=== PATIENT | female | born 1995 | race Hispanic/Latino ===

== ENCOUNTER 2022-08-07 02:28 | Inpatient (IN) | payer MEDICAID, OTHER ==
[2022-08-07] MEDS ORDERED: Lidocaine 1% (PF) 30 ML VIAL SC PRN (03:36)
[2022-08-07] MEDS ORDERED: Acetaminophen 500 MG TAB PO PRN (03:36)
[2022-08-07] MEDS ORDERED: Carboprost 250 MCG/ML AMP IM PRN (03:36)
[2022-08-07] MEDS ORDERED: hydrALAZINE 20 MG/ML VIAL SLOW IVP PRN ×2 (03:36→14:32)
[2022-08-07] MEDS ORDERED: Ondansetron PF 4 MG/2 ML Vial IVP PRN ×3 (03:36→14:32)
[2022-08-07] MEDS ORDERED: Diphenoxylate HCl/Atropine Tablet PO PRN (03:36)
[2022-08-07] MEDS ORDERED: Promethazine HCl 25 MG/ML VIAL IM PRN ×2 (03:36→10:37)
[2022-08-07] MEDS ORDERED: Misoprostol 200 MCG TAB PR PRN (03:36)
[2022-08-07] MEDS ORDERED: Methylergonovine 0.2 MG/ML VIAL IM PRN (03:36)
[2022-08-07] MEDS ORDERED: Docusate 100 MG CAP PO PRN (03:36)
[2022-08-07] MEDS ORDERED: Ibuprofen 800 MG TAB PO PRN (03:36)
[2022-08-07] MEDS ORDERED: NS w/ Oxytocin 30 units 500 ML IV SCH (03:45)
[2022-08-07 03:53] LABS: Fetal Membranes Rupture RUPTURE DETECTED (No Rupture)
[2022-08-07 04:47] LABS: Hemoglobin 13.2 g/dL (12.0-15.5); Mean Corpuscular HGB CONC 34.4 g/dL (32.0-36.0); Mean Corpuscular Hemoglobin 30.6 pg (27.0-33.0); Mean Corpuscular Volume 89.1 fl (81.6-98.3); Mean Platelet Volume 11.1 fl (7.4-10.4); Platelet Count 260 10x3/uL (150-450); RBC Distribution Width 14.4 % (11.5-14.5); Red Blood Cell (RBC) Count 4.31 10x6/uL (3.90-5.03); White Blood Cell (WBC) Count 10.9 10x3/uL (3.5-10.5)
[2022-08-07] MEDS ORDERED: Fentanyl 2 mcg/Bup 0.1% Cadd 100 ML ONE (05:06)
[2022-08-07 05:32] LABS: Syphilis Antibody Nonreactive (Nonreactive); Syphilis Antibody Index 0.02 S/CO (<1.00 Non-Reactive)
[2022-08-07 05:33] LABS: HBSAg Index 0.18 S/CO (0-0.99); Hep B Surf Ag Non-Reactive S/CO (NonReactive)
[2022-08-07 07:22] LABS: SARS-CoV-2 NAA Rapid Test Not Detected (NotDetected)
[2022-08-07] MEDS ORDERED: Bupivacaine 0.25% HCL 30 ML VIAL ONE (08:00)
[2022-08-07] MEDS ORDERED: Naloxone HCl 0.4 mg/ml Vial IVP PRN ×2 (10:37)
[2022-08-07] MEDS ORDERED: Moisturizing Cream (Eucerin) 113 GM JAR TOP PRN (10:37)
[2022-08-07] MEDS ORDERED: Acetaminophen 325 MG TAB PO PRN (10:37)
[2022-08-07] MEDS ORDERED: ePHEDrine Sulfate 50 MG/10 ML VIAL SLOW IVP PRN (10:37)
[2022-08-07] MEDS ORDERED: diphenhydrAMINE 50 MG/ML VIAL IVP PRN (10:37)
[2022-08-07] MEDS ORDERED: Communication Order-Pharmacy FS SCH (10:45)
[2022-08-07] MEDS ORDERED: Fentanyl 2 mcg/Bupivacaine 0.1% Cassette 100 ML EPIDURAL SCH (10:45)
[2022-08-07] MEDS ORDERED: Lactated Ringer's 500 ML IV PRN (10:54)
[2022-08-07] MEDS ORDERED: Fentanyl 100 MCG/2 ML VIAL ONE (11:10)
[2022-08-07 12:09] LABS: RapidComm Collect By CBN
[2022-08-07 12:11] LABS: RapidComm Collect By CBN; pH (Cord, venous) 7.412 (7.250-7.350)
[2022-08-07] MEDS ORDERED: Milk Of Magnesia 30 ML UDCUP PO PRN (14:32)
[2022-08-07] MEDS ORDERED: Boostrix 0.5 ML (Tdap) VIAL (>/=7 yrs of age) IM ONE (14:32)
[2022-08-07] MEDS ORDERED: Lanolin Ointment 7 GM TUBE TOP PRN (14:32)
[2022-08-07] MEDS ORDERED: Preparation H Ointment 28 GM TUBE PR PRN (14:32)
[2022-08-07] MEDS ORDERED: Bisacodyl 10 MG SUPP PR PRN (14:32)
[2022-08-07] MEDS: Ibuprofen 800 MG TAB PO SCH ×2 (15:12→22:12)
[2022-08-07] MEDS: Ferrous Sulfate 325 MG TAB PO SCH (15:42)
[2022-08-07] MEDS: Docusate 100 MG CAP PO SCH (22:12)
[2022-08-08 02:40] VITALS: BMI 32.2
[2022-08-08] MEDS: Ibuprofen 800 MG TAB PO SCH ×3 (06:15→21:43)
[2022-08-08] MEDS: Ferrous Sulfate 325 MG TAB PO SCH ×2 (07:11→17:00)
[2022-08-08 07:52] LABS: Mean Corpuscular HGB CONC 34.7 g/dL (32.0-36.0); Mean Corpuscular Hemoglobin 31.6 pg (27.0-33.0); Mean Corpuscular Volume 91.1 fl (81.6-98.3); Platelet Count 265 10x3/uL (150-450); RBC Distribution Width 14.6 % (11.5-14.5); Red Blood Cell (RBC) Count 3.48 10x6/uL (3.90-5.03); White Blood Cell (WBC) Count 11.5 10x3/uL (3.5-10.5)
[2022-08-08] MEDS: Prenatal Vitamin 1 TAB PO SCH (09:59)
[2022-08-08] MEDS: Docusate 100 MG CAP PO SCH ×2 (09:59→21:43)
[2022-08-09] MEDS: Ibuprofen 800 MG TAB PO SCH ×2 (05:48→13:53)
[2022-08-09 07:52] VITALS: BP 112/72; TEMP 97.5
[2022-08-09] MEDS: Prenatal Vitamin 1 TAB PO SCH (08:21)
[2022-08-09] MEDS: Docusate 100 MG CAP PO SCH (08:21)
[2022-08-09] MEDS: Ferrous Sulfate 325 MG TAB PO SCH (08:21)
== END 2022-08-09 14:00 | disposition home or self-care (01) | DRG 806 ==
LOC: CSHLD/OP 02:28 → CSHLD 04:06 → CSHPED 14:40
PROVIDERS: ADMIT Emergency Medicine; ATTEND Emergency Medicine
PROC: 10E0XZZ Delivery of Products of Conception, External Approach (ICD-10-PCS; principal; 2022-08-07)
PROC: 3E0334Z Introduction of Serum, Toxoid and Vaccine into Peripheral Vein, Percutaneous Approach (ICD-10-PCS; 2022-08-07)
PROC: 10H07YZ Insertion of Other Device into Products of Conception, Via Natural or Artificial Opening (ICD-10-PCS; 2022-08-07)
DX: O42.02 Full-term premature rupture of membranes, onset of labor within 24 hours of rupture (principal); O99.354 Diseases of the nervous system complicating childbirth; Z37.0 Single live birth; Z3A.39 39 weeks gestation of pregnancy; Z20.822 Contact with and (suspected) exposure to COVID-19; O26.893 Other specified pregnancy related conditions, third trimester; Z67.11 Type A blood, Rh negative; G43.909 Migraine, unspecified, not intractable, without status migrainosus; O76 Abnormality in fetal heart rate and rhythm complicating labor and delivery; O71.82 Other specified trauma to perineum and vulva
CPT/HCPCS: 36415; 51702; 82805; 84112; 85027; 85461; 86780; 86850; 86900; 86901; 87340; 88307; 90384; 96372; 99285; J2590; S0020; U0002